=== PATIENT | male | born 1970 | race Caucasian/White ===

== ENCOUNTER → 2019-02-26 | Outpatient (CLI) | payer OTHER ==
[~2019-02-26] MED LIST: ACYC400 PO; AMLO10 PO; ASPI81CH PO; CEPH500 PO; CODACE30 PO; HYDACE10B PO; HYDACE5 PO; LISI20 PO; PRAV20 PO; PRED20 PO; RXCODACET PO; SULTRIDS PO; TOBDEXOPSU OP; VALA500 PO; [UNRECOGNIZED DRUG - CODE] OD
== END | disposition home or self-care (01) ==
LOC: LAB 19:42 → LAB SHORT 19:42
DX: L98.9 Disorder of the skin and subcutaneous tissue, unspecified (principal)
CPT/HCPCS: 87070; 87077; 87147; 87186; 87205

== ENCOUNTER 2020-08-26 08:45 | Observation (INO) | payer OTHER ==
[~2020-08-26] VITALS: Ht 180.3 cm; Wt 98.0 kg
[2020-08-26] MEDS ORDERED: LISI20 PO (08:55)
[2020-08-26] MEDS ORDERED: AMLO10 PO (08:55)
[2020-08-26 09:04] LABS: BASOPHILS PERCENT AUTO 1 % (0-2); EOSINOPHILS ABSOLUTE AUTO 0.19 K/mm3 (0.00-0.68); EOSINOPHILS PERCENT AUTO 2 % (0-6); Hematocrit 47.6 % (37.0-53.0); Hemoglobin 16.2 g/dL (13.5-17.5); IMMATURE GRAN ABSOLUTE AUTO 0.04 K/mm3 (0.00-0.10); IMMATURE GRAN PERCENT AUTO 0 % (0-1); LYMPHOCYTES ABSOLUTE AUTO 1.86 K/mm3 (0.84-5.20); LYMPHOCYTES PERCENT AUTO 20 % (21-46); MONOCYTES PERCENT AUTO 5 % (4-13); Mean Corpuscular HGB 30.9 pg (26.0-34.0); Mean Corpuscular Volume 91 fL (80-100); Mean Platelet Volume 9.6 fL (9.1-12.4); NEUTROPHILS ABSOLUTE AUTO 6.52 K/mm3 (1.96-9.15); NEUTROPHILS PERCENT AUTO 71 % (41-73); Platelet Count 238 K/mm3 (150-400); RDW Coefficient Variation 12.2 % (11.7-14.2); RDW Standard Deviation 41.1 fL (35.1-46.3); Red Blood Cell Count 5.24 M/mm3 (4.30-5.90); White Blood Cell Count 9.21 K/mm3 (4.00-11.30)
[2020-08-26 09:27] LABS: Alanine Aminotransfer (ALT/SGP 52 U/L (12-78); Albumin, Blood 3.9 g/dL (3.4-5.0); Albumin/Globulin Ratio 0.9 (0.8-1.8); Alk Phos 91 U/L (50-136); Anion Gap 6 mmol/L (6-16); Aspartate Aminotrans (AST/SGOT 34 U/L (12-37); Bilirubin, Total 0.4 mg/dL (0.1-1.0); Blood Urea Nitrogen 17 mg/dL (8-24); Bun/Creatinine Ratio 14.5 (12.0-20.0); CO2, Blood 24 mmol/L (21-32); Calcium, Blood 8.7 mg/dL (8.5-10.1); Chloride, Blood 111 mmol/L (98-108); Creatinine, Blood 1.17 mg/dL (0.60-1.20); Globulin, Blood 4.2 g/dL (2.2-4.0); Glomerular Filtration Rate >60 (60-); Glucose, Blood 109 mg/dL (70-99); Potassium, Blood 3.8 mmol/L (3.5-5.5); Sodium, Blood 141 mmol/L (136-145); Total Protein, Blood 8.1 g/dL (6.4-8.2); Troponin I <0.015 ng/mL (0.000-0.040)
--- NOTE | 2020-08-26 14:20 | NUR ---
Echocardiogrm completed.
--- NOTE | 2020-08-26 16:14 | NUR ---
PT ADMITTED FOR CHEST PAIN THAT STARTED AROUND 330 AM. PT STATED HE FELT CONSTANT PRESSURE ON HIS LEFT LOWER BREAST AFTER GETTING UP IN THE MORNING. PT TROP WNL. PT RECEIVED NICORETTE, LISINOPRIL, AND ASPIRIN IN THE ED. PT AOX4 AND INDEPENDENT IN THE ROOM. PMH ARE ONLY HTN AND HYPOCHOLESTEREMIA. PT IS A SMOKER AND DAILY DRINKER OF BEER ABOUT 6 BEERS A DAY. PT IS ON TELE RUNNING SINUS TITA @56. DENIES CHEST PAIN OR ANY DISCOMFORT. PT LIVES WITH MOM. PT ORIENTED IN THE ROOM AND CALL LIGHT WITHIN REACH
--- NOTE | 2020-08-27 03:33 | NUR ---
SHIFT SUMMARY PATIENT HAD NO ACUTE CHANGES OBSERVED. AXOX 4 AND INDEPENDENT IN THE ROOM. DENIES CHEST PAIN, SOB, AND N/V. VSS/AFEBRILE. PIV REMAINS INTACT. COIN MACHINE SERVICER REPAIRER REPORTS SB @ 51 AT START OF SHIFT AND COMPUTED TOMOGRAPHY SCANNER OPERATOR LATER REPORTS SB @ 39 SLEEPING AND RIGHT BACK INTO THE 50'S. COOPERATIVE WITH CARE. CALL LIGHT IN REACH. BED IN LOWEST POSITION. WILL CONTINUE TO MONITOR UNTIL DAY SHIFT NURSE ASSUMES CARE.
[2020-08-27 05:51] LABS: CHOL/HDL RATIO 3.2; Cholesterol 192 mg/dL (50-200); HDL Cholesterol 60 mg/dL (>39); LDL/HDL RATIO 1.7; Low Density Lipoprotein Chol 101 mg/dL (0-110); Triglycerides 156 mg/dL (30-160); Very Low Density Lipoprot Chol 31 mg/dL (6-32)
[2020-08-27] MEDS ORDERED: LOTREL 10-20 M1 EACH PO (10:56)
--- NOTE | 2020-08-27 11:16 | NUR ---
PT TO DISCHARGE HOME. IV REMOVED,NO SS OF INFECTION NOTED. PT HAS NO PCP SO THIS NURSE EDUCATED HIM ON THE IMPORTANCE OF ESTABLISHING ONE. PT WAS EDUCTED REGARDING NEW MEDICATION. MEDS SENT TO [facility] IN PER PATIENT REQUEST. PT WAS ABLE TO WALK OUT .
== END 2020-08-27 11:15 | disposition home or self-care (01) ==
LOC: ER 08:45 → ERHOLD 08:46 → MEDS 08:46
PROVIDERS: Emergency Medicine; Nurse Practitioner Acute Care; ADMIT Internal Medicine
DX: R07.9 Chest pain, unspecified (principal); I10 Essential (primary) hypertension; E78.5 Hyperlipidemia, unspecified; F17.210 Nicotine dependence, cigarettes, uncomplicated; F10.20 Alcohol dependence, uncomplicated
CPT/HCPCS: 36415; 71045; 80053; 80061; 83036; 83735; 84484; 85025; 93005; 93010; 93306; 99285-25; A9270; G0378; J1650

== ENCOUNTER 2022-07-19 11:32 | Observation (INO) | payer OTHER ==
[2022-07-19] VITALS (10 sets, daily range): BP systolic 107–139; BP diastolic 70–94
[~2022-07-19] VITALS: Ht 182.9 cm; Wt 109.3 kg
[~2022-07-19 11:32] MED LIST changes: +LOTREL 10-20 M1 EACH PO
[2022-07-19 11:55] LABS: Calcium, Ionized (POC) 1.02 mmol/L (1.10-1.46); Chloride (POC) 107 mmol/L (98-108); Creatinine (POC) 0.9 mg/dL (0.8-1.3); Glucose (ISTAT POC) 120 mg/dL (70-99); Hemoglobin (POC) 14.3 g/dL (13.5-17.5); Potassium (POC) 3.2 mmol/L (3.5-5.5); Sodium (POC) 139 mmol/L (135-148); Total CO2 (POC) 20 mmol/L (21-32)
[2022-07-19 11:57] LABS: BASOPHILS ABSOLUTE AUTO 0.08 K/mm3 (0.00-0.23); BASOPHILS PERCENT AUTO 1 % (0-2); EOSINOPHILS ABSOLUTE AUTO 0.27 K/mm3 (0.00-0.68); EOSINOPHILS PERCENT AUTO 4 % (0-6); Hematocrit 43.6 % (37.0-53.0); Hemoglobin 15.3 g/dL (13.5-17.5); IMMATURE GRAN ABSOLUTE AUTO 0.02 K/mm3 (0.00-0.10); IMMATURE GRAN PERCENT AUTO 0 % (0-1); LYMPHOCYTES ABSOLUTE AUTO 2.29 K/mm3 (0.84-5.20); LYMPHOCYTES PERCENT AUTO 30 % (21-46); MONOCYTES ABSOLUTE AUTO 0.39 K/mm3 (0.16-1.47); MONOCYTES PERCENT AUTO 5 % (4-13); Mean Corpuscular HGB 29.9 pg (26.0-34.0); Mean Corpuscular HGB Conc 35.1 g/dL (31.5-36.5); Mean Corpuscular Volume 85 fL (80-100); Mean Platelet Volume 9.6 fL (9.1-12.4); NEUTROPHILS ABSOLUTE AUTO 4.57 K/mm3 (1.96-9.15); NEUTROPHILS PERCENT AUTO 60 % (41-73); Platelet Count 262 K/mm3 (150-400); RDW Coefficient Variation 12.4 % (11.7-14.2); RDW Standard Deviation 38.4 fL (35.1-46.3); Red Blood Cell Count 5.12 M/mm3 (4.30-5.90); White Blood Cell Count 7.62 K/mm3 (4.00-11.30)
[2022-07-19 12:14] LABS: International Normalized Ratio 0.98; Prothrombin Time Results 10.3 Sec (9.7-11.5)
[2022-07-19 12:15] LABS: Alanine Aminotransfer (ALT/SGP 38 U/L (12-78); Albumin, Blood 3.6 g/dL (3.4-5.0); Albumin/Globulin Ratio 0.9 (0.8-1.8); Alk Phos 86 U/L (50-136); Anion Gap 7 mmol/L (6-16); Aspartate Aminotrans (AST/SGOT 30 U/L (12-37); Bilirubin, Total 0.3 mg/dL (0.1-1.0); Blood Urea Nitrogen 19 mg/dL (8-24); Bun/Creatinine Ratio 17.1 (12.0-20.0); CHOL/HDL RATIO 4.9; CO2, Blood 24 mmol/L (21-32); Calcium, Blood 8.8 mg/dL (8.5-10.1); Chloride, Blood 106 mmol/L (98-108); Cholesterol 227 mg/dL (50-200); Creatinine, Blood 1.11 mg/dL (0.60-1.20); Globulin, Blood 4.1 g/dL (2.2-4.0); Glomerular Filtration Rate 80 (60-); Glucose, Blood 140 mg/dL (70-99); HDL Cholesterol 46 mg/dL (>39); LDL/HDL RATIO 3.1; Low Density Lipoprotein Chol 140 mg/dL (0-110); Potassium, Blood 3.6 mmol/L (3.5-5.5); Sodium, Blood 137 mmol/L (136-145); Total Protein, Blood 7.7 g/dL (6.4-8.2); Triglycerides 203 mg/dL (30-160); Very Low Density Lipoprot Chol 40 mg/dL (6-32)
[2022-07-19] MEDS ORDERED: HYDCHL25 PO (13:09)
--- NOTE | 2022-07-19 17:34 | NUR ---
ARRIVAL TO ICU/SHIFT SUMMARY/TRANSFER TO PCU PT ARRIVES TO ICU AT 1300 POST PCI. PT ADMITTED FOR STEMI. NO INTERVENTIONS NEEDED IN INTERNAL GRINDER SET UP OPERATOR. TR BAND TO RIGHT RADIAL. PT HAD 1/10 CHEST DISCOMFORT ON ARRIVAL, DENIES CHEST PAIN OR OTHER SYMPTOMS AT THIS TIME. SB/SR ON MONITOR, RATE 48-60, BP STABLE. LUNGS CLEAR. ON RA. NEURO WNL. TR BAND HAS BEEN DEFLATED AND REMOVED, NO HEMATOMA OR BRUISING NOTED. TEGADERM AND ARMBOARD IN PLACE. HEPARIN GTT STARTED PER DR BOSTON. CRITICAL TROPONIN CALLED TO [facility], NO NEED TO TREND OR FURTHER INTERVENTIONS. WILL TRANSFER TO PCU 15 WHEN ROOM READY.
--- NOTE | 2022-07-19 18:06 | NUR ---
PCU ARRIVAL PT TRANSFERRED TO PCU FROM ICU BY WHEELCHAIR @ APPROX 1800. PT IS A&O X4. VSS. SPO2 >92% ON RA. SINUS RHYHTM 50'S-60'S. PT DENIES ANY CP OR SOB. HEPARIN GTT INFUSING @ 15 U/KG/HR. NS GTT INFUSING @ 75 ML/HR. TR BAND REMOVED @ APPROX 1710. ARMBOARD IN PLACE. SMALLER THAN A PEA SIZED BALL NOTED AT R RADIAL SITE. PT WITH NO OTHER COMPLAINTS AT THIS TIME. BED IN LOWEST POSITION AND CALL LIGHT IN REACH.
--- NOTE | 2022-07-19 21:02 | NUR ---
ASSUMPTION OF CARE THIS RN ASSUMED CARE OF PATIIENT AT 1900. REPORT TAKEN FROM MCKENNA RN AND SWATI, STUDENT NURSE. PATIENT IS ALERT AND ORIENTED FULLY. ABLE TO MAKE NEEDS KNOWN AND MANAGES ADL'S INDEPENDENTLY. RIGHT RADIAL SITE FULLY RECOVERED. SMALL HARD BUMP AT PUNCTURE SITE WHICH IS CONSISTENT WITH PREVIOUS RN'S ASSESSMENT. NO BLEEDING, OOZING, HEMATOMA, DISCOLORATION, OR TENDERNESS NOTED. TEGADERM IN PLACE AND C/D/I. ARMBOARD IN PLACE; PATIENT VERBALIZING UNDERSTANDING OF MOVEMENT RESTRICTIONS FOR HAND/WRIST. BP STABLE. SB ON MONITOR WITH HR 40-50'S. 5 AND 7 BEAT RUN OF PVC'S AT BEGINNING OF SHIFT; PATIENT REPORTED BRIEF MOMENT OF FEELING "CONGESTION", OTHERWISE DENIES CHEST PAIN/PRESSURE AND SOB. ON RA WITH SPO2 >92%. AFEBRILE. HEP GTT AND NS INFUSING PER EMAR. BED IN LOWEST POSITION AND CALL LIGHT WITHIN REACH.
[2022-07-20 01:43] LABS: BASOPHILS ABSOLUTE AUTO 0.09 K/mm3 (0.00-0.23); BASOPHILS PERCENT AUTO 1 % (0-2); EOSINOPHILS ABSOLUTE AUTO 0.33 K/mm3 (0.00-0.68); EOSINOPHILS PERCENT AUTO 3 % (0-6); Hematocrit 43.3 % (37.0-53.0); Hemoglobin 15.1 g/dL (13.5-17.5); IMMATURE GRAN PERCENT AUTO 1 % (0-1); LYMPHOCYTES ABSOLUTE AUTO 2.27 K/mm3 (0.84-5.20); LYMPHOCYTES PERCENT AUTO 21 % (21-46); MONOCYTES PERCENT AUTO 6 % (4-13); Mean Corpuscular HGB Conc 34.9 g/dL (31.5-36.5); Mean Corpuscular Volume 86 fL (80-100); Mean Platelet Volume 9.6 fL (9.1-12.4); NEUTROPHILS ABSOLUTE AUTO 7.58 K/mm3 (1.96-9.15); NEUTROPHILS PERCENT AUTO 69 % (41-73); Platelet Count 252 K/mm3 (150-400); RDW Coefficient Variation 12.7 % (11.7-14.2); RDW Standard Deviation 39.2 fL (35.1-46.3); Red Blood Cell Count 5.04 M/mm3 (4.30-5.90); White Blood Cell Count 11.07 K/mm3 (4.00-11.30)
[2022-07-20 01:49] LABS: Albumin, Blood 3.4 g/dL (3.4-5.0); Albumin/Globulin Ratio 0.9 (0.8-1.8); Bilirubin, Total 0.5 mg/dL (0.1-1.0); Bun/Creatinine Ratio 15.5 (12.0-20.0); Calcium, Blood 8.6 mg/dL (8.5-10.1); Creatinine, Blood 0.97 mg/dL (0.60-1.20); Globulin, Blood 3.9 g/dL (2.2-4.0); Total Protein, Blood 7.3 g/dL (6.4-8.2)
[2022-07-20 03:09] VITALS: BP 120/67
--- NOTE | 2022-07-20 04:34 | NUR ---
SHIFT SUMMARY PATIENT NOTED TO HAVE MULTIPLE RUNS OF VTACH DURING THIS SHIFT, RANGING FROM 5 TO 9 BEAT RUNS. PATIENT DENIED SYMPTOMS AND VITALS REMAINED STABLE. NO OTHER ACUTE CHANGES. RIGHT RADIAL SITE REMAINS UNCHANGED FROM PREVIOUS ASSESSMENT. FULLY RECOVERED WITH DRESSING C/D/I. ARMBOARD IN PLACE. PPP. ON RA WITH SPO2 >92%. BP STABLE. SB/SR WITH BBB WITH HR 40-60'S. INDEPENDENT WITH ADL'S AND REPOSITIONING. BED IN LOWEST POSITION AND CALL LIGHT WITHIN REACH. THIS RN WILL CONTINUE TO MONITOR UNTIL SHIFT CHANGE AT 0700.
[2022-07-20 07:28] VITALS: BP 165/104
[2022-07-20 11:31] VITALS: BP 131/94
[2022-07-20] MEDS ORDERED: ASPI325 PO (11:56)
[2022-07-20] MEDS ORDERED: ATOR80 PO (11:57)
[2022-07-20 13:16] LABS: U Amphetamine Screen Not Detected; U Barbituate Screen Not Detected; U Benzodiazapine Screen Not Detected; U Buprenorphine Screen Not Detected; U Cannabinoids Screen Not Detected; U Cocaine Screen Not Detected; U Methadone Screen Not Detected; U Methamphetamine Screen Not Detected; U Opiates Screen Not Detected; U Oxycodone Screen Not Detected; U Phencyclidine Screen Not Detected; U Propoxyphene Screen Not Detected
--- NOTE | 2022-07-20 13:30 | NUR ---
DISCHARGE HOME PT A&O X4. VSS. SP02 > 92% ON RA. MONITOR SHOWING NSR ON TELELMETRY PRIOR TO DC. PT DENYING CP/DISCOMFORT. CT PE STUDY COMPLETE THIS AM. MD SHEEHAN & MD BOSTON W/ ADRIANA FOR PT DISCHARGE. DISCHARGE INSTRUCTIONS REVIEWED W/ PT & PRINTED COPY SENT HOME W/ PT. PIVs REMOVED. PT TAKEN OUT BY WHEELCHAIR W/ BELONGINGS @ APPROX 1330.
== END 2022-07-20 13:28 | disposition home or self-care (01) ==
LOC: ER 11:32 → ICUE 11:33 → ICUW 11:33 → PCU 11:33 → ICUW 11:51 → ER 11:51 → ICUE 11:51 → ICUW 13:09 → ICUE 13:34 → PCU 17:59
PROVIDERS: Student in an Organized Health Care Education/Training Program; ADMIT Hospitalist
DX: I25.10 Atherosclerotic heart disease of native coronary artery without angina pectoris (principal); I10 Essential (primary) hypertension; F17.200 Nicotine dependence, unspecified, uncomplicated; E87.6 Hypokalemia; E66.9 Obesity, unspecified; I77.819 Aortic ectasia, unspecified site; E78.5 Hyperlipidemia, unspecified; F10.20 Alcohol dependence, uncomplicated; R73.03 Prediabetes
CPT/HCPCS: 36415; 71045; 71260; 76937; 80047; 80053; 80061; 83735; 83880; 84484; 85014; 85025; 85520; 85610; 85730; 86850; 86900; 86901; 93005; 93010; 93306; 93458; 99152; 99153; A9270; C1769; C1887; C1894; J1644; J2250; J3010; J7030; J7050; Q9967

== ENCOUNTER → 2024-01-08 | Outpatient (CLI) | payer OTHER ==
[~2024-01-08] MED LIST changes: +ASPI325 PO; +ATOR80 PO; +HYDCHL25 PO
[2024-01-08 12:03] LABS: BASOPHILS ABSOLUTE AUTO 0.15 K/mm3 (0.00-0.23); BASOPHILS PERCENT AUTO 2 % (0-2); EOSINOPHILS ABSOLUTE AUTO 0.24 K/mm3 (0.00-0.68); EOSINOPHILS PERCENT AUTO 2 % (0-6); Hematocrit 46.5 % (37.0-53.0); Hemoglobin 16.1 g/dL (13.5-17.5); IMMATURE GRAN ABSOLUTE AUTO 0.03 K/mm3 (0.00-0.10); IMMATURE GRAN PERCENT AUTO 0 % (0-1); LYMPHOCYTES ABSOLUTE AUTO 2.21 K/mm3 (0.84-5.20); LYMPHOCYTES PERCENT AUTO 21 % (21-46); MONOCYTES ABSOLUTE AUTO 0.58 K/mm3 (0.16-1.47); MONOCYTES PERCENT AUTO 6 % (4-13); Mean Corpuscular HGB 31.8 pg (26.0-34.0); Mean Corpuscular HGB Conc 34.6 g/dL (31.5-36.5); Mean Corpuscular Volume 92 fL (80-100); NEUTROPHILS ABSOLUTE AUTO 7.13 K/mm3 (1.96-9.15); NEUTROPHILS PERCENT AUTO 69 % (41-73); Platelet Count 248 K/mm3 (150-400); RDW Coefficient Variation 12.9 % (11.7-14.2); RDW Standard Deviation 42.9 fL (35.1-46.3); Red Blood Cell Count 5.07 M/mm3 (4.30-5.90); White Blood Cell Count 10.34 K/mm3 (4.00-11.30)
[2024-01-08 12:30] LABS: Albumin, Blood 3.7 g/dL (3.4-5.0); Albumin/Globulin Ratio 0.9 (0.8-1.8); Bilirubin, Total 0.3 mg/dL (0.1-1.0); Bun/Creatinine Ratio 12.7 (12.0-20.0); Calcium, Blood 8.7 mg/dL (8.5-10.1); Creatinine, Blood 1.18 mg/dL (0.60-1.20); Potassium, Blood 3.8 mmol/L (3.5-5.5); Total Protein, Blood 7.7 g/dL (6.4-8.2)
== END ==
LOC: LAB 11:53 → LAB SHORT 11:53
PROVIDERS: Physician Assistant
DX: I10 Essential (primary) hypertension (principal)
CPT/HCPCS: 80053; 85025

== ENCOUNTER 2024-04-08 10:53 | Inpatient (IN) | payer OTHER ==
[~2024-04-08] VITALS: Ht 182.9 cm; Wt 99.0 kg
[2024-04-08] VITALS (39 sets, daily range): BP systolic 98–200; BP diastolic 71–146
[~2024-04-08 10:53] MED LIST changes: +FentaNYL Citrate 50 MCG/ML 2 ML Injection ONE; +Heparin Sodium 1000 Units/ML 10ML MDV ONE; -LOTREL 10-20 M1 EACH PO; +LOTREL 10-40 M1 EACH PO; +Midazolam HCl 1MG / ML 2ML Vial ONE; +NS 1,000 ML IV ONE; +NS 250 ML IV ONE; +Verapamil HCL 2.5 MG/ML 2ML Injection ONE
[2024-04-08] MEDS ORDERED: Nitroglycerin 2 MG/20 ML BTL ONE (10:54)
[2024-04-08] MEDS ORDERED: Aspirin 325 MG Tab PO ONE (10:55)
[2024-04-08] MEDS ORDERED: Heparin Sodium 1000 Units/ML 10ML MDV ONE (10:57)
[2024-04-08] MEDS ORDERED: Heparin Sodium 5000 Units/ML 1ML MDV IV ONE (11:00)
[2024-04-08] MEDS ORDERED: NiCARdipine HCL 1,000 MCG/5 ML SYR ONE (11:00)
[2024-04-08] MEDS ORDERED: Ticagrelor 90 MG TABLET PO ONE ×2 (11:00→13:29)
[2024-04-08] MEDS ORDERED: NS 1,000 ML IV ONE (11:09)
[2024-04-08 11:10] LABS: Calcium, Ionized (POC) 1.13 mmol/L (1.10-1.46); Chloride (POC) 101 mmol/L (98-108); Creatinine (POC) 1.2 mg/dL (0.8-1.3); Glucose (ISTAT POC) 122 mg/dL (70-99); Hemoglobin (POC) 18.4 g/dL (13.5-17.5); Potassium (POC) 3.7 mmol/L (3.5-5.5); Sodium (POC) 135 mmol/L (135-148); Total CO2 (POC) 24 mmol/L (21-32)
[2024-04-08 11:17] LABS: BASOPHILS ABSOLUTE AUTO 0.13 K/mm3 (0.00-0.23); BASOPHILS PERCENT AUTO 1 % (0-2); EOSINOPHILS ABSOLUTE AUTO 0.07 K/mm3 (0.00-0.68); EOSINOPHILS PERCENT AUTO 1 % (0-6); Hematocrit 49.7 % (37.0-53.0); Hemoglobin 17.4 g/dL (13.5-17.5); IMMATURE GRAN ABSOLUTE AUTO 0.02 K/mm3 (0.00-0.10); IMMATURE GRAN PERCENT AUTO 0 % (0-1); LYMPHOCYTES PERCENT AUTO 13 % (21-46); MONOCYTES ABSOLUTE AUTO 0.53 K/mm3 (0.16-1.47); MONOCYTES PERCENT AUTO 4 % (4-13); Mean Corpuscular Volume 89 fL (80-100); Mean Platelet Volume 9.7 fL (9.1-12.4); NEUTROPHILS ABSOLUTE AUTO 10.92 K/mm3 (1.96-9.15); NEUTROPHILS PERCENT AUTO 81 % (41-73); Platelet Count 268 K/mm3 (150-400); RDW Coefficient Variation 12.3 % (11.7-14.2); RDW Standard Deviation 40.4 fL (35.1-46.3); Red Blood Cell Count 5.61 M/mm3 (4.30-5.90); White Blood Cell Count 13.47 K/mm3 (4.00-11.30)
[2024-04-08] MEDS ORDERED: FentaNYL Citrate 50 MCG/ML 2 ML Injection ONE (11:26)
[2024-04-08] MEDS ORDERED: Midazolam HCl 1MG / ML 2ML Vial ONE (11:26)
[2024-04-08] MEDS ORDERED: Atropine Sulfate 0.1 MG/ML 10ML SYR ONE (11:44)
[2024-04-08 11:49] LABS: Bun/Creatinine Ratio 14.5 (12.0-20.0); Creatinine, Blood 1.17 mg/dL (0.60-1.20); Magnesium, Blood 2.1 mg/dL (1.6-2.4); Potassium, Blood 3.7 mmol/L (3.5-5.5)
[2024-04-08] MEDS ORDERED: FLU VACC TS2024-25(6MOS UP)/PF 45 MCG/0.5 ML SYRINGE IM ONE (12:20)
[2024-04-08] MEDS ORDERED: Ondansetron HCl 2 MG / ML 2ML Vial IV PRN (12:20)
[2024-04-08] MEDS ORDERED: Zolpidem Tartrate 10 MG Tab PO PRN (12:20)
[2024-04-08] MEDS ORDERED: NS 1,000 ML IV SCH (12:25)
[2024-04-08] MEDS ORDERED: Metoprolol Succinate 25 MG TABCR PO SCH (12:30)
[2024-04-08] MEDS ORDERED: HydrALAZINE HCl 20 MG / ML 1ML Vial IV PRN (12:30)
[2024-04-08] MEDS ORDERED: Nicotine 14 MG PATCH TOP SCH (12:30)
[2024-04-08] MEDS ORDERED: Irbesartan 150 MG Tab PO SCH (12:30)
[2024-04-08] MEDS ORDERED: Nitroglycerin 0.4 MG SUBL SL PRN (12:35)
[2024-04-08] MEDS ORDERED: Heparin Sodium,Porcine 5,000 UNIT/0.5 ML SDV SC ONE (13:29)
--- NOTE | 2024-04-08 17:06 | NUR ---
ASSUMED CARE OF PATIENT AT 1600. REPORT RECEIVED FROM ZOILA COE.
--- NOTE | 2024-04-08 17:30 | NUR ---
CARE SUMMARY/TR BAND PT REMAINED ALERT AND ORIENTED X 4 SINCE ASSUMPTION OF CARE. ABLE TO FOLLOW COMMANDS, MAKE PURPOSEFUL MOVEMENTS, AND MAKE NEEDS KNOWN. AFEBRILE AND DENIES PAIN. NO SIGNS OF ETOH WD AT THIS TIME. SBA. BP ELEVATED AT 186/132. MEDICATED WITH 10mG PRN HYDRALAZINE PER EMAR WITH GOOD BENEFIT. CONTINUOUS CARDIAC MONITORING SHOWS SB-SR WITH HR IN 50'S-60'S. PT DENIES CP/SOB. ON RA WITH O2 SATURATION > 92%. UTILIZES BEDSIDE URINAL. PIV TO LAC, PIC TO RFA INFUSING NS @ 75mL/HR, TO BE SHUT OFF AT 1900. TR BAND TO R RADIAL SITE. AT 1733 WHEN ATTEMPTING TO DEFLATE BY 2mLS, SITE STARTED TO BLEED. 2mL REINSTILLED PUTTING TR BAND BACK AT 4mL INSTILLED, APPLE TURNER NOTIFIED. WILL RECHECK AT 1803. WILL CONTINUE TO MONITOR AND REPORT TO ONCOMING RN.
[2024-04-08] MEDS ORDERED: Atorvastatin 40 MG Tab PO SCH (21:00)
[2024-04-08] MEDS ORDERED: Ticagrelor 90 MG TABLET PO SCH (21:00)
[2024-04-09] VITALS (10 sets, daily range): BP systolic 99–121; BP diastolic 69–97
[2024-04-09 03:40] LABS: BASOPHILS ABSOLUTE AUTO 0.12 K/mm3 (0.00-0.23); BASOPHILS PERCENT AUTO 1 % (0-2); EOSINOPHILS ABSOLUTE AUTO 0.31 K/mm3 (0.00-0.68); EOSINOPHILS PERCENT AUTO 3 % (0-6); Hematocrit 50.4 % (37.0-53.0); Hemoglobin 17.8 g/dL (13.5-17.5); IMMATURE GRAN ABSOLUTE AUTO 0.03 K/mm3 (0.00-0.10); IMMATURE GRAN PERCENT AUTO 0 % (0-1); LYMPHOCYTES ABSOLUTE AUTO 1.96 K/mm3 (0.84-5.20); LYMPHOCYTES PERCENT AUTO 20 % (21-46); MONOCYTES ABSOLUTE AUTO 0.51 K/mm3 (0.16-1.47); MONOCYTES PERCENT AUTO 5 % (4-13); Mean Corpuscular HGB 31.4 pg (26.0-34.0); Mean Corpuscular HGB Conc 35.3 g/dL (31.5-36.5); Mean Corpuscular Volume 89 fL (80-100); Mean Platelet Volume 9.5 fL (9.1-12.4); NEUTROPHILS ABSOLUTE AUTO 6.67 K/mm3 (1.96-9.15); NEUTROPHILS PERCENT AUTO 70 % (41-73); Platelet Count 280 K/mm3 (150-400); RDW Coefficient Variation 12.5 % (11.7-14.2); Red Blood Cell Count 5.67 M/mm3 (4.30-5.90)
[2024-04-09 04:01] LABS: Anion Gap 12 mmol/L (3-11); Blood Urea Nitrogen 13 mg/dL (8-24); CHOL/HDL RATIO 3.4; CO2, Blood 21 mmol/L (21-32); Calcium, Blood 9.3 mg/dL (8.5-10.1); Chloride, Blood 104 mmol/L (98-108); Cholesterol 192 mg/dL (50-200); Glomerular Filtration Rate 90 (60-); Glucose, Blood 188 mg/dL (70-99); HDL Cholesterol 56 mg/dL (>39); Low Density Lipoprotein Chol 114 mg/dL (0-110); Potassium, Blood 3.1 mmol/L (3.5-5.5); Sodium, Blood 134 mmol/L (136-145); Triglycerides 110 mg/dL (30-160); Very Low Density Lipoprot Chol 22 mg/dL (6-32)
[2024-04-09] MEDS ORDERED: Potassium Chloride 20 MEQ TabCR PO ONE (04:30)
--- NOTE | 2024-04-09 05:02 | NUR ---
4SHIFT SUMMARY PATIETN SLEPT MOST OD SHIFT. GOT UP TO USE BEDSIDE URINAL X3. PATEINT GOT UPO AROUND 0400 AND WANTED TO GO TO ACTUAL TOILET WITH ASSISTS FROM NURSE. PATIENT A&O X4. AFERIBLE, SBP IN THE 110'S, HR IN THE 60'S WHEN AWAKE BUT DOES TITA DOWN IN TO THE HIGH 40'S. ON A HEART HEALTHY DIET. HAD A LEFT AND RIGHT AC 18G IV'S. TR BAND WAS REMOVE @2030 WITH IN BLEEDING ARM BOARD STILL IN PLACE RIGHT RADIAL. WILL CONTUINE TO MONITOR AND CALL LIGHT WITHIN REACH.
[2024-04-09] MEDS ORDERED: Potassium Chloride 20 MEQ/15 ML UDC PO ONE (07:20)
[2024-04-09] MEDS ORDERED: Metoprolol Succinate 25 MG TABCR PO SCH (09:00)
[2024-04-09] MEDS ORDERED: prasugrel HCL 10 MG TABLET PO SCH (09:00)
[2024-04-09] MEDS ORDERED: Aspirin 81 MG TabEC PO SCH (09:00)
[2024-04-09] MEDS ORDERED: Aspir 8181 MG PO (09:53)
[2024-04-09] MEDS ORDERED: IRBE150 PO (09:54)
[2024-04-09] MEDS ORDERED: IRBE150 (09:54)
[2024-04-09] MEDS ORDERED: IRBE75 (09:54)
[2024-04-09] MEDS ORDERED: NITR.4SL SL (09:57)
[2024-04-09] MEDS ORDERED: EFFIENT10 MG PO (09:59)
--- NOTE | 2024-04-09 16:16 | NUR ---
DISCHARGE PT DISCHARGED HOME AT 1100. EDUCATION REVIEWED WITH PT REGARDING MEDICATION CHANGES, DIAGNOSES, ANGIOGRAM WITH STENT PLACEMENT, FOLLOW UP APPOINTMENTS. F/U APPOINTMENTS MADE FOR PCP WITH EFM, CARDIOLOGY, AND LAB WORK. PIV DISCONTINUED X2. PT VERBALIZES UNDERSTANDING OF INSTRUCTIONS. PT AMBULATORY TO POV. 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 ATTEMPTED TO NOTIFY. CHARGED BAGGED AND PLACED IN LOCKED SOILED UTILITY WITH LABEL AND FACE SHEET.
== END 2024-04-09 11:00 | disposition home or self-care (01) | DRG 322 ==
LOC: ER 10:53 → ICUE 11:11
PROVIDERS: Emergency Medicine; ADMIT Internal Medicine Cardiovascular Disease
PROC: 027034Z Dilation of Coronary Artery, One Artery with Drug-eluting Intraluminal Device, Percutaneous Approach (ICD-10-PCS; principal; 2024-04-08)
PROC: B2111ZZ Fluoroscopy of Multiple Coronary Arteries using Low Osmolar Contrast (ICD-10-PCS; 2024-04-08)
PROC: 4A023N7 Measurement of Cardiac Sampling and Pressure, Left Heart, Percutaneous Approach (ICD-10-PCS; 2024-04-08)
PROC: B24BZZZ Ultrasonography of Heart with Aorta (ICD-10-PCS; 2024-04-08)
DX: I21.11 ST elevation (STEMI) myocardial infarction involving right coronary artery (principal); I10 Essential (primary) hypertension; E78.5 Hyperlipidemia, unspecified; F17.210 Nicotine dependence, cigarettes, uncomplicated; I25.10 Atherosclerotic heart disease of native coronary artery without angina pectoris; R00.1 Bradycardia, unspecified; T44.7X5A Adverse effect of beta-adrenoreceptor antagonists, initial encounter; E87.6 Hypokalemia; I25.2 Old myocardial infarction; Z98.61 Coronary angioplasty status; Z79.899 Other long term (current) drug therapy; Z71.6 Tobacco abuse counseling
CPT/HCPCS: 36415; 71045; 76937; 80047; 80048; 80061; 83735; 84484; 85014; 85025; 85347; 93005; 93010; 93306; 93458; 99152; 99153; A9270; C1725; C1769; C1874; C1887; C1894; C9606; J0360; J0461; J1644; J2250; J3010; J7030; J7050; Q9967

== ENCOUNTER 2025-02-09 01:30 | Emergency (ER) | payer OTHER ==
[~2025-02-09] VITALS: Ht 182.9 cm; Wt 102.1 kg
[~2025-02-09 01:30] MED LIST changes: +Aspir 8181 MG PO; +EFFIENT10 MG PO; -FentaNYL Citrate 50 MCG/ML 2 ML Injection ONE; -Heparin Sodium 1000 Units/ML 10ML MDV ONE; +IRBE150; +IRBE150 PO; +IRBE75; -Midazolam HCl 1MG / ML 2ML Vial ONE; +NITR.4SL SL; -NS 1,000 ML IV ONE; -NS 250 ML IV ONE; -Verapamil HCL 2.5 MG/ML 2ML Injection ONE
[2025-02-09 02:10] LABS: BASOPHILS ABSOLUTE AUTO 0.12 K/mm3 (0.00-0.23); BASOPHILS PERCENT AUTO 1 % (0-2); EOSINOPHILS ABSOLUTE AUTO 0.32 K/mm3 (0.00-0.68); EOSINOPHILS PERCENT AUTO 4 % (0-6); Hematocrit 43.2 % (37.0-53.0); Hemoglobin 14.7 g/dL (13.5-17.5); IMMATURE GRAN ABSOLUTE AUTO 0.05 K/mm3 (0.00-0.10); IMMATURE GRAN PERCENT AUTO 1 % (0-1); LYMPHOCYTES ABSOLUTE AUTO 1.76 K/mm3 (0.84-5.20); LYMPHOCYTES PERCENT AUTO 20 % (21-46); MONOCYTES ABSOLUTE AUTO 0.65 K/mm3 (0.16-1.47); MONOCYTES PERCENT AUTO 7 % (4-13); Mean Corpuscular HGB Conc 34.0 g/dL (31.5-36.5); Mean Corpuscular Volume 93 fL (80-100); NEUTROPHILS ABSOLUTE AUTO 5.83 K/mm3 (1.96-9.15); NEUTROPHILS PERCENT AUTO 67 % (41-73); NRBC ABSOLUTE 0.00 K/mm3 (0.00-0.02); NRBC Auto 0.0 /100 WBC (0.0-0.2); Platelet Count 340 K/mm3 (150-400); RDW Coefficient Variation 12.8 % (11.7-14.2); RDW Standard Deviation 43.8 fL (35.1-46.3)
[2025-02-09 02:21] LABS: Alanine Aminotransfer (ALT/SGP 30.0 U/L (12-78); Albumin, Blood 3.4 g/dL (3.4-5.0); Albumin/Globulin Ratio 0.8 (0.8-1.8); Anion Gap 11.0 mmol/L (3-11); Aspartate Aminotrans (AST/SGOT 29.0 U/L (12-37); Bilirubin, Total 0.3 mg/dL (0.1-1.0); Blood Urea Nitrogen 15.0 mg/dL (8-24); CO2, Blood 18.0 mmol/L (21-32); Calcium, Blood 8.1 mg/dL (8.5-10.1); Chloride, Blood 111.0 mmol/L (98-108); Creatinine, Blood 1.01 mg/dL (0.60-1.20); Globulin, Blood 4.2 g/dL (2.2-4.0); Glucose, Blood 97.0 mg/dL (70-99); Magnesium, Blood 2.1 mg/dL (1.6-2.4); Potassium, Blood 3.6 mmol/L (3.5-5.5); Sodium, Blood 136.0 mmol/L (136-145); Total Protein, Blood 7.6 g/dL (6.4-8.2)
[2025-02-09 06:00] VITALS: BP 134/95
== END 2025-02-09 06:02 | disposition home or self-care (01) ==
LOC: ER 01:30
PROVIDERS: Student in an Organized Health Care Education/Training Program
DX: S22.41XA Multiple fractures of ribs, right side, initial encounter for closed fracture (principal); N28.9 Disorder of kidney and ureter, unspecified; I25.10 Atherosclerotic heart disease of native coronary artery without angina pectoris; I25.2 Old myocardial infarction; I10 Essential (primary) hypertension; F17.210 Nicotine dependence, cigarettes, uncomplicated; F17.220 Nicotine dependence, chewing tobacco, uncomplicated; Z79.82 Long term (current) use of aspirin; Z79.899 Other long term (current) drug therapy; W11.XXXA Fall on and from ladder, initial encounter
CPT/HCPCS: 71045; 71260; 80053; 83690; 83735; 84484; 85025; 85379; 99285-25; Q9967